=== PATIENT | female | born 1995 | race Hispanic/Latino ===

== ENCOUNTER 2016-09-11 14:18 | Emergency (ER) | payer MEDICAID ==
[2016-09-11 14:32] VITALS: BP 105/71
[2016-09-11 15:06] LABS: Basophils % (Auto) 0.4 % (0.0-1.8); Eosinophils % (Auto) 0.8 % (0.0-4.3); Hematocrit 40.9 % (30.3-42.9); Hemoglobin 13.7 gm/dl (10.1-14.3); Mean Corpuscular HGB Conc 34 % (30-34); Mean Corpuscular Hemoglobin 30 pg (28-32); Mean Corpuscular Volume 90 fl (79-97); Platelet Count 162 K/mm3 (140-440); Red Blood Count 4.57 M/mm3 (3.65-5.03); Red Cell Distribution Width 12.4 % (13.2-15.2); White Blood Count 11.4 K/mm3 (4.5-11.0)
[2016-09-11] MEDS ORDERED: TYLENOL PO ONE (15:43)
--- NOTE | 2016-09-11 15:43 | Emergency Department Report ---
HPI - General Chief Complaint: Vaginal Bleeding Time Seen by Provider: 09/11/16 14:56 - HPI HPI: Is a 21-year-old female presents emergency department from home with complaint of lower abdominal discomfort, vaginal bleeding and possible miscarriage. The patient was discharged from will start called last night after she had an ultrasound that showed a acute uterine without any heartbeat. She says she was supposed to follow up with her SEISMOLOGY TECHNICAL OFFICER but today the bleeding increased and she started having more discomfort so she came here for further evaluation. She sees a SEISMOLOGY TECHNICAL OFFICER at "[facility]" in [place]. She has not taken anything for symptoms prior to presentation. With this she is . She used a total of about 1 pad today. ED Past Medical Hx - Past Medical History Previous Medical History?: No - Surgical History Past Surgical History?: No - Social History Smoking Status: Never Smoker Substance Use Type: None - Medications Home Medications: Home Medications Medication Instructions Recorded Confirmed Last Taken Type Vit W-Ca,Fe,FA(<1 mg) 1 tab PO QDAY 09/11/16 09/11/16 Unknown History [ Vitamins] ED Review of Systems ROS: Stated complaint: POSSIBLE MISCARRIAGE Other details as noted in HPI Comment: All other systems reviewed and negative Constitutional: denies: chills, fever Eyes: denies: eye pain, eye discharge, vision change ENT: denies: ear pain, throat pain Respiratory: denies: cough, shortness of breath, wheezing Cardiovascular: denies: chest pain, palpitations Gastrointestinal: abdominal pain. denies: nausea, vomiting Genitourinary: other (vaginal bleeding). denies: urgency, dysuria, discharge Musculoskeletal: denies: back pain, joint swelling, arthralgia Skin: denies: rash, lesions Neurological: denies: headache, weakness, paresthesias Physical Exam - Physical Exam Vital Signs: Vital Signs 09/11/16 09/11/16 14:27 14:32 Temperature 98.1 F Pulse Rate 83 Respiratory 16 16 Rate Blood Pressure 105/71 O2 Sat by Pulse 99 99 Oximetry Physical Exam: GENERAL: The patient is well-developed well-nourished. HEENT: Normocephalic. Atraumatic. Extraocular motions are intact. Patient has moist mucous membranes. Pupils equal reactive to light bilaterally. NECK: Supple. Trachea is midline. CHEST/LUNGS: Clear to auscultation. There is no respiratory distress noted. HEART/CARDIOVASCULAR: Regular. There is no tachycardia. There is no gallop rub or murmur. ABDOMEN: Abdomen is soft, nontender. Patient has normal bowel sounds. There is no abdominal distention. SKIN: Skin is warm and dry. NEURO: The patient is awake, alert, and oriented. The patient is cooperative. The patient has no focal neurologic deficits. The patient has normal speech. MUSCULOSKELETAL: There is no tenderness or deformity. There is no limitation range of motion. There is no evidence of acute injury. : There is a mild amount of maroon-colored blood seen in the vaginal vault. No lesions or lacerations. Cervical os is closed. ED Course Vital Signs 09/11/16 09/11/16 14:27 14:32 Temperature 98.1 F Pulse Rate 83 Respiratory 16 16 Rate Blood Pressure 105/71 O2 Sat by Pulse 99 99 Oximetry - Consultations Consultation #1: The SEISMOLOGY TECHNICAL OFFICER on-call, Dr. Arora, who felt that the patient sounds hemodynamically stable and with the ultrasound finding of 8 week demise that the patient is able to follow-up with her SEISMOLOGY TECHNICAL OFFICER tomorrow to be scheduled for a D&C. 09/11/16 17:57 ED Medical Decision Making - Lab Data Result diagrams: 09/11/16 14:54 - Radiology Data Radiology results: report reviewed Transvaginal/ ultrasound shows a single intrauterine that would correspond to a gestational age of 8 .5 weeks but there is no cardiac activity and no movement concerning for demise. - Medical Decision Making No female presents with complaint of some lower abdominal/pelvic discomfort and some mild vaginal bleeding with probable miscarriage. The patient had a ultrasound last night that showed no cardiac activity. Patient's labs are unremarkable today except for a beta-hCG that is at 1100. If the patient was truly between 13 and 15 weeks then and this value would not be helpful but with the ultrasound showing a 8.5 weeks it appears to be very low. The ultrasound did show concerns for demise without cardiac activity or movement. Pelvic exam just showed some mild blood and a closed cervical os. Spoke with SEISMOLOGY TECHNICAL OFFICER who recommends patient follow up with her own SEISMOLOGY TECHNICAL OFFICER tomorrow and be scheduled for possible D&C. - Differential Diagnosis , spontaneous miscarriage, threatened miscarriage, demise, f Critical Care Time: No Critical care attestation.: If time is entered above; I have spent that time in minutes in the direct care of this critically ill patient, excluding procedure time. ED Disposition Clinical Impression: demise Disposition: DISCHARGED TO HOME OR SELFCARE Is pt being admited?: No Condition: Stable Instructions: Intrauterine Demise (ED) Additional Instructions: Please follow-up with your SEISMOLOGY TECHNICAL OFFICER tomorrow without fail regarding your intrauterine demise as you may need a D&C in the very near future. Return to the emergency department with any intractable fever, intractable vomiting, increased bleeding, worsening of her symptoms or any acute distress. Referrals: PRIMARY CARE, [Primary Care Provider] - [facility] Time of Disposition: 18:02
[2016-09-11 16:42] LABS: Bilirubin,Urine NEG (Negative); Blood,Urine LG (Negative); Ketones,Urine NEG (Negative); Leukocyte Esterase,Urine TR (Negative); Mucus,Urine FEW /HPF; Nitrite,Urine NEG (Negative); Protein,Urine <15 mg/dL mg/dL (Negative); Urobilinogen,Urine < 2.0 mg/dL (<2.0)
--- NOTE | 2016-09-11 16:44 | Ultrasound Report ---
Transabdominal and transvaginal OB ultrasound. History: Vaginal bleeding. Findings: There is a single intrauterine with a crown-rump length measuring 2 cm. This would correspond to gestational age of 8 and one half weeks. However, there is no cardiac activity and no movement is identified. The ovaries are normal. Impression: demise. Comment: These findings were given by telephone to Dr. Avila in the emergency room at 4:35 PM on September 11, 2016.
[2016-09-11] MEDS ORDERED: NORCO 5/325 PO ONE (17:32)
== END 2016-09-11 18:25 | disposition home or self-care (01) ==
LOC: ED 14:18
DX: O36.4XX1 Maternal care for intrauterine death, fetus 1 (principal)
CPT/HCPCS: 36415; 76801; 76817; 81001; 84702; 85025; 86850; 86900; 86901

== ENCOUNTER 2017-06-10 12:40 | Emergency (ER) | payer MEDICAID ==
[2017-06-10 13:18] VITALS: BP 127/85
== END 2017-06-10 21:11 | disposition left against medical advice (07) ==
LOC: ED 12:40
DX: M54.5 Low back pain (principal); Z53.21 Procedure and treatment not carried out due to patient leaving prior to being seen by health care provider